=== PATIENT | male | born 1965 | race Caucasian/White ===

== ENCOUNTER 2017-09-28 19:58 | Emergency (ER) | payer BC ==
[2017-09-28] MEDS ORDERED: TORAdol 30 mg Injection IM ONE (20:55)
--- NOTE | 2017-09-28 20:55 | ERPHSYRPT ---
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 states he was wearing tennis shoes at the time and he had swelling in his foot immediately Triage Nursing Assessment: pt awake and alert, answers questions approp. pt in wheelchair a this time, states hw walked in from car. respirations nonlabored with lungs cta. swelling and bruising noted to top of rt foot. cap refill and sensation wnl. 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 This happened at 6 PM. It struck him in the right mid foot. He was wearing tennis shoes. The pain is not severe at this time however there is significant swelling. He took some Tylenol for the pain. He denies numbness or tingling. His past medical history is significant for knee pain and hypertension. Method of Injury: direct blow Occurred: this evening Quality: constant, aching Severity of Pain-Max: mild Severity of Pain-Current: mild Lower Extremities Pain: foot: right Modifying Factors: Improves With: pain medication Associated Symptoms: none Allergies/Adverse Reactions: No Known Drug Allergies Allergy (Unverified 12/15/11 13:11) Home Medications: Celecoxib [Celebrex] 200 mg PO BID 12/15/11 [History] Lisinopril [Zestril] 2.5 mg PO DAILY 09/28/17 [History] Hx Tetanus, Diphtheria Vaccination/Date Given: Yes Hx Influenza Vaccination/Date Given: Yes Hx Pneumococcal Vaccination/Date Given: No Immunizations Up to Date: Yes - Review of Systems Constitutional: No Fever, No Chills Eyes: No Symptoms Ears, Nose, & Throat: No Symptoms Respiratory: No Cough, No Dyspnea Cardiac: No Chest Pain, No Edema, No Syncope Abdominal/Gastrointestinal: No Abdominal Pain, No Nausea, No Vomiting, No Diarrhea Genitourinary Symptoms: No Dysuria Musculoskeletal: Injury, No Back Pain, No Neck Pain Skin: No Rash Neurological: No Dizziness, No Focal Weakness, No Sensory Changes Psychological: No Symptoms Endocrine: No Symptoms Hematologic/Lymphatic: No Symptoms Immunological/Allergic: No Symptoms All Other Systems: Reviewed and Negative - Past Medical History Pertinent Past Medical History: Yes Neurological History: No Pertinent History ENT History: No Pertinent History Cardiac History: Hypertension, Other Respiratory History: Sleep Apnea Endocrine Medical History: No Pertinent History Musculoskeletal History: Osteoarthritis GI Medical History: No Pertinent History History: No Pertinent History Psycho-Social History: Anxiety, Depression Male Reproductive Disorders: No Pertinent History Other Medical History: Afib surgery in 2011 - Past Surgical History Past Surgical History: Yes Neuro Surgical History: No Pertinent History Cardiac: No Pertinent History Respiratory: No Pertinent History Gastrointestinal: No Pertinent History Genitourinary: No Pertinent History Musculoskeletal: Orthopedic Surgery Male Surgical History: No Pertinent History Other Surgical History: GASTRIC BYPASS, shoulder surgery, acl 2017 - Social History Smoking Status: Former smoker Exposure to second hand smoke: No Drug Use: none Patient Lives Alone: No - Nursing Vital Signs Nursing Vital Signs: Initial Vital Signs Temperature 98.2 F 09/28/17 20:06 Pulse Rate 68 09/28/17 20:06 Respiratory Rate 18 09/28/17 20:06 Blood Pressure 140/91 09/28/17 20:06 O2 Sat by Pulse Oximetry 96 09/28/17 20:06 Pain Scale Pain Intensity 4 - Physical Exam General Appearance: alert Eyes, Ears, Nose, Throat Exam: moist mucous membranes Neck Exam: non-tender, supple Cardiovascular/Respiratory Exam: chest non-tender, normal breath sounds, regular rate/rhythm, no respiratory distress Gastrointestinal/Abdominal Exam: non-tender, guarding Back Exam: normal inspection, No vertebral tenderness Hips Exam: bilateral: non-tender, normal inspection Legs Exam: bilateral leg: non-tender, normal inspection Knees Exam: bilateral knee: non-tender, normal inspection Ankle Exam: bilateral ankle: non-tender, normal inspection Foot Exam: right foot: ecchymosis, soft tissue tenderness, swelling, left foot: non-tender, normal inspection Neuro/Tendon Exam: normal sensation, normal motor functions Mental Status Exam: alert, oriented x 3, cooperative Skin Exam: normal color, warm, dry SpO2 Interpretation: normal SpO2: 96 Oxygen Delivery: Room Air - CT Exams Right Lower Extremity CT Interpretation: Tele-radiologist Report, No Fracture (per Dr Stokes.) Ordered Tests: Active Orders 24 hr Category Date Time Status Cold Application STAT Care 09/28/17 20:11 Active FOOT (MINIMUM 3 VIEWS) Stat Exams 09/28/17 20:34 Taken LOWER EXTREMITY WO CONTRAST [CT] Stat Exams 09/28/17 20:55 Taken Medication Summary Discontinued Medications Generic Name Dose Route Start Last Admin Trade Name Ronny PRN Reason Stop Dose Admin Ketorolac Tromethamine 60 mg 09/28/17 20:55 09/28/17 21:02 Toradol 30 Mg Injection IM 09/28/17 20:56 60 mg STAT ONE Administration Ketorolac Tromethamine Confirm 09/28/17 20:58 Toradol 30 Mg Injection Administered 09/28/17 20:59 Dose 60 mg .ROUTE .STK-MED ONE - Progress Progress: improved Counseled pt/family regarding: diagnosis, need for follow-up, rad results - Departure Time of Disposition: 23:00 Departure Disposition: Home Clinical Impression: Contusion of right foot Condition: Stable Critical Care Time: No Referrals: CASEY CAROLINA MD [Primary Care Provider] - Additional Instructions: You have a contusion of your right midfoot. The CT scan of the right foot did not show any fracture. You were given Toradol 60 mg by IM in the ER. Take Tylenol and ibuprofen as needed. Ice her foot for 10-15 minutes 3 times a day for the next 2-3 days. Keep her foot elevated as much as possible. Follow-up with your primary medical doctor as needed.
[2017-09-28] MEDS ORDERED: TORAdol 30 mg Injection ONE (20:58)
[2017-09-28 23:37] VITALS: BP 125/74; PULSE 67; O2SAT 98
--- NOTE | 2017-09-29 08:51 | XRAY ---
Indication: 2-5 metatarsal pain/swelling following injury. Multiple contiguous axial images obtained through the left foot. Two-dimensional sagittal and coronal reformatted images obtained. Comparison: None There is moderate anterior foot soft tissue swelling/hematoma. No acute fracture, dislocation, or radiopaque foreign body. Moderate 1st MTP degenerative changes as evidenced by joint space loss, sclerosis/spurring, and subcortical cysts. Tiny heel spurs. Ankle mortise intact. Remaining visualized noncontrasted soft tissues unremarkable. Impression: 1. Soft tissue swelling/hematoma. Negative acute fracture/dislocation. 2. 1st MTP degenerative changes and heel spurs. Comment: Preliminary interpretation was made by [facility]. No discrepancy. CTDI 74.34
--- NOTE | 2017-09-29 08:53 | XRAY ---
Indication: 2-5 metatarsal pain following injury. Comparison: None 3 nonweightbearing views of the right foot demonstrates anterior soft tissue swelling, moderate 1st MTP degenerative changes, and tiny posterior heel spur. No other bony, articular, or soft tissue abnormalities.
== END 2017-09-28 23:39 | disposition home or self-care (01) ==
LOC: ED 19:58
DX: S90.31XA Contusion of right foot, initial encounter (principal); W22.8XXA Striking against or struck by other objects, initial encounter
CPT/HCPCS: 73630; 73700; 96372; 99283; 99284; J1885

== ENCOUNTER 2023-08-25 08:36 | Day surgery (SDC) | payer BC ==
--- NOTE | 2023-08-25 08:15 | HP ---
DATE OF SURGERY: 08/25/2023 HISTORY OF PRESENT ILLNESS: The patient is a 57-year-old had his annual visit and had some blood work with some slight elevation of the test. He had ultrasound with gallstones. No pain currently, nausea or vomiting. Prior history of cardiac ablation. No heart problems. No stent per patient. PAST MEDICAL HISTORY: Hypertension, anxiety, depression, atrial fibrillation, osteoarthritis. PAST SURGICAL HISTORY: Carpal tunnel. Knee surgery. Gastric bypass. Shoulder surgery. Cardiac ablation. MEDICATIONS: Phentermine, celecoxib. ALLERGIES: NKDA. FAMILY HISTORY: Diabetes, heart disease. SOCIAL HISTORY: Former smoker. No alcohol abuse. REVIEW OF SYSTEMS: Twelve systems reviewed. No chest pain or palpitations. Other systems negative or noncontributory as above and per preadmission questionnaire. PHYSICAL EXAMINATION: Height 5 feet, 10 inches. BMI 30.85. GENERAL: No acute distress. HEENT: Sclerae nonicteric. EOMI. Oral mucous membranes moist. NECK: No JVD. CHEST: Equal excursion, nonlabored breathing. CVS: Regular rate and rhythm. ABDOMEN: Soft. No peritoneal signs. EXTREMITIES: No significant edema. NEURO: Alert, oriented, moving extremities symmetrically. PSYCH: Appropriate mood and affect. SKIN: Dry. IMPRESSION: Cholelithiasis possible chronic cholecystitis, whether he passed any sludge or not. He is not having pain now. Discussed options of cholecystectomy to decrease the risk of future problems down the road. He was explained the risks and benefits in detail including to bleeding or infection, risk of bowel injury or perforation, risk of trocar injury, risk of bile leak, bile duct injury, retained stone or sludge possibly requiring further procedure either open or ERCP, general risk of anesthesia, deep venous thrombosis, pulmonary embolism, pneumonia, perioperative risk of aches, pains, bloating, constipation and/or loose stools possibly even chronic in nature and possibly no improvement in preoperative symptoms possibly requiring further work up, studies or referrals but not limited to. Otherwise, continue medications for his arthritis. Will proceed with laparoscopic cholecystectomy possible open as an outpatient.
[2023-08-25] MEDS ORDERED: MEFOXIN 2 GM PREMIX** 2 GM/50 ML ML IV ONE (08:47)
[2023-08-25 08:54] VITALS: RESP 18
[2023-08-25] MEDS: MEFOXIN 2 GM PREMIX** 2 GM/50 ML ML IV SCH (08:54)
[2023-08-25] MEDS: Lactated Ringers 1,000 ML IV SCH (08:55)
[2023-08-25 09:03] LABS: Absolute Neutrophil Ct (ANC) 2.63 x10^3/uL (1.4-6.9); BASOPHIL % 0.8 % (0.0-0.4); Basophil (Absolute #) 0.04 x10^3/uL (0-0.4); Eosinophil % 2.5 % (0.00-5.0); Eosinophil (Absolute #) 0.13 x10^3/uL (0-0.5); Hemoglobin 14.6 g/dL (12.5-18.0); IMMATURE GRAN # 0.01 x10^3u/L (0.00-0.03); IMMATURE GRAN % 0.2 % (0.00-0.4); Lymphocyte (Absolute #) 1.89 x10^3/uL (1.0-4.6); Lymphocytes % 36.6 % (24.0-44.0); Mean Cell Volume 96.5 fL (78-100); Mean Corpuscular Hgb Concent. 33.2 g/dL (32-36); Mean Platelet Volume 9.4 fL (7.5-11.0); Monocyte (Absolute #) 0.46 x10^3/uL (0.0-1.3); Monocytes % 8.9 % (0.0-12.0); Platelet Count 277 x10^3/uL (150-450); Red Blood Count 4.56 x10^6/uL (4.1-5.6); Red Cell Distribution Width 11.9 % (11.5-14.0); White Blood Count 5.2 x10^3/uL (4.0-10.5)
[2023-08-25 09:17] LABS: ALBUMIN 4.3 g/dL (3.5-5.0); ANION GAP 9.9 MEQ/L (5-15); BILIRUBIN,TOTAL 1.5 mg/dL (0.2-1.3); Calcium 8.9 mg/dL (8.4-10.2); Creatinine 1 0.86 mg/dL (0.66-1.25); EST GLOMERULAR FILTRATION RATE 102.3 ML/MIN; Total Protein 7.1 g/dL (6.3-8.2)
[2023-08-25] MEDS ORDERED: SUBLIMAZE 100 MCG/2 ML ONE ×2 (10:25→11:59)
[2023-08-25] MEDS ORDERED: DIPRIVAN 200 MG/20 ML IV ONE (10:25)
[2023-08-25] MEDS ORDERED: Versed 2 MG/2 ML Injection ONE (10:25)
[2023-08-25] MEDS ORDERED: BRIDION 200MG/2ML IV ONE (10:26)
[2023-08-25] MEDS ORDERED: ROBINUL ONE ×2 (10:26→11:18)
[2023-08-25] MEDS ORDERED: Decadron 4 MG INJ ONE (10:26)
[2023-08-25] MEDS ORDERED: ROCURONIUM BROMIDE IV ONE ×2 (10:26→11:24)
[2023-08-25] MEDS ORDERED: TORAdol 30 mg Injection ONE (10:26)
[2023-08-25] MEDS ORDERED: Zofran 4 MG/2 ML VIAL ONE (10:26)
[2023-08-25] MEDS ORDERED: Xylocaine-Mpf 2% 5 Ml Vial ONE (10:27)
[2023-08-25] MEDS ORDERED: Sensorcaine 0.25% 10 ML ONE (10:36)
[2023-08-25] MEDS ORDERED: Ephedrine Sulfate 50 MG/ML ONE (11:07)
[2023-08-25] MEDS ORDERED: Hydromorphone 1 mg/ml Injection ONE (12:07)
[2023-08-25 13:08] VITALS: BP 133/88; PULSE 51; TEMP 98.7; O2SAT 98
--- NOTE | 2023-08-25 14:04 | OP ---
SURGERY DATE/TIME: 08/25/2023 1120 PREOPERATIVE DIAGNOSIS: Cholelithiasis, probable chronic cholecystitis. POSTOPERATIVE DIAGNOSIS: Cholelithiasis, mild chronic cholecystitis. PROCEDURE: Laparoscopic cholecystectomy. SURGEON: Dr. Dimas Tomlinson. ANESTHESIA: General. ESTIMATED BLOOD LOSS: Minimal. INDICATIONS: As noted above. Risks and benefits explained in detail but not limited to and consent obtained. DESCRIPTION OF PROCEDURE AND FINDINGS: The patient was taken to the operating room. General anesthesia induced. Abdomen prepped and draped in the usual sterile fashion. After official time out and no disagreement with planned procedure, a transverse incision made at the supraumbilical area. Fascia grasped and pulled upward. Veress needle inserted and tested with saline. Pneumoperitoneum accomplished insufflating opening pressure of 0-15. A 5 mm bladeless port and camera inserted without difficulty followed by two - 5 mm right upper quadrant ports and 11 mm epigastric port. The gallbladder is quite distended. It had omental adhesions and some chronic inflammation. The adhesions are carefully taken down. The gallbladder is dissected posterior, lateral to anterior fashion slowly and carefully skeletonized the cystic duct and infundibular junction. Once this was skeletonized critical view obtained anteriorly and posteriorly. Cystic duct clipped x3 and divided in the usual fashion. The main cystic artery clipped x3 and divided in usual fashion. This was a quite vascular gallbladder required clipping individual oozing side branch off the cystic artery and cystic vein directly on the gallbladder wall as necessary this is slowly and carefully accomplished staying directly on the gallbladder wall. Just prior to releasing from final attachments to the anterior edge of the liver, the liver bed re-inspected. Clips noted in place cystic duct and cystic artery stumps. No signs of any active bleeding or bile leakage. It was felt there was no benefit from drain placement. Gallbladder released from final attachments, placed in the provided sac pulled up and out the epigastrium. It was able to be popped up outside the skin where it was decompressed of bile allowing the gallbladder bag to be pulled free and passed off. This fascia defect was closed with puncture closure device with #1 Vicryl under direct vision of the camera. Copious amount of irrigation accomplished laterally to the liver and subhepatic space until clear. The liver bed re-inspected. Clips noted in place cystic duct and cystic artery stumps. No signs of any active bleeding or bile leakage. It was felt there was no benefit in drain placement. The patient tolerated the procedure well. There were no immediate complications. Findings discussed with the family out in the waiting area. Skin incision closed with 4-0 Vicryl. Steri-Strips and sterile dressing applied. There were no immediate complications.
== END 2023-08-25 13:20 | disposition home or self-care (01) ==
LOC: SDC 08:36
PROVIDERS: ATTEND Surgery
DX: K80.10 Calculus of gallbladder with chronic cholecystitis without obstruction (principal); I10 Essential (primary) hypertension; I48.91 Unspecified atrial fibrillation
CPT/HCPCS: 36415; 80053; 85025; 93005; J0694; J1100; J1170; J1885; J2250; J2405; J2704; J3010